=== PATIENT | female | born 1980 | race Caucasian/White ===

== ENCOUNTER 2019-03-30 12:18 | Emergency (ER) | payer OTHER ==
[~2019-03-30] VITALS: Ht 160 cm; Wt 81.6 kg
[2019-03-30 12:18] VITALS: BP_SYST 118
[2019-03-30 14:40] VITALS: BP_SYST 118
[2019-03-31 05:06] LABS: HEPATITIS B CORE AB, TOTAL Negative (Negative); HEPATITIS B SURFACE AG Negative (Negative); HEPATITIS C VIRUS AB 0.1 s/co ratio (0.0-0.9)
== END 2019-03-30 14:40 | disposition home or self-care (01) ==
LOC: SED 12:18
DX: S61.230A Puncture wound without foreign body of right index finger without damage to nail, initial encounter (principal); Z88.1 Allergy status to other antibiotic agents; W46.1XXA Contact with contaminated hypodermic needle, initial encounter; Y93.89 Activity, other specified; Y92.89 Other specified places as the place of occurrence of the external cause; Y99.8 Other external cause status
CPT/HCPCS: 36415; 86704; 86706; 86803; 87340; 99283